=== PATIENT | male | born 1985 | race Caucasian/White ===

== ENCOUNTER 2020-09-11 15:12 | Emergency (ER) | payer MEDICAID ==
[~2020-09-11] VITALS: Ht 175.3 cm; Wt 68.2 kg
[2020-09-11 16:12] VITALS: BP 102/61
== END 2020-09-11 16:34 | disposition home or self-care (01) ==
LOC: ER 15:12
DX: Z02.89 Encounter for other administrative examinations (principal); F17.200 Nicotine dependence, unspecified, uncomplicated; F12.90 Cannabis use, unspecified, uncomplicated; F15.90 Other stimulant use, unspecified, uncomplicated
CPT/HCPCS: 99281

== ENCOUNTER 2023-02-23 09:26 | Emergency (ER) | payer MEDICAID ==
[~2023-02-23] VITALS: Ht 175.3 cm; Wt 80.0 kg
[2023-02-23] MEDS ORDERED: CHLO473M3 PO (10:48)
[2023-02-23] MEDS ORDERED: NICO1PAT36 TOP (10:48)
[2023-02-23] MEDS ORDERED: IBUP-1985 PO (10:48)
[2023-02-23] MEDS ORDERED: ketorolac trometh inj. 60 MG/2 ML VIAL IM ONE (10:50)
[2023-02-23] MEDS ORDERED: acetaminophen 325mg tablet PO ONE (10:50)
[2023-02-23 11:36] VITALS: BP 123/70
== END 2023-02-23 11:38 | disposition home or self-care (01) ==
LOC: ER 09:28
DX: S02.2XXA Fracture of nasal bones, initial encounter for closed fracture (principal); R68.84 Jaw pain; F15.10 Other stimulant abuse, uncomplicated; F12.10 Cannabis abuse, uncomplicated; Y04.8XXA Assault by other bodily force, initial encounter; Y93.89 Activity, other specified; Y92.89 Other specified places as the place of occurrence of the external cause; Y99.8 Other external cause status
CPT/HCPCS: 70486; 96372; 99285; J1885

== ENCOUNTER 2024-01-10 11:10 | Outpatient (CLI) | payer SELFPAY ==
[~2024-01-10 11:10] MED LIST: CHLO473M3 PO; IBUP-1985 PO; NICO1PAT36 TOP
== END 2024-01-10 23:59 | disposition home or self-care (01) ==
LOC: RAD 11:10
PROVIDERS: ATTEND Family Medicine
DX: S92.001A Unspecified fracture of right calcaneus, initial encounter for closed fracture (principal); M25.571 Pain in right ankle and joints of right foot; M79.671 Pain in right foot; X58.XXXA Exposure to other specified factors, initial encounter; Y93.89 Activity, other specified; Y92.89 Other specified places as the place of occurrence of the external cause; Y99.8 Other external cause status
CPT/HCPCS: 73610; 73630